=== PATIENT | male | born 1980 | race Caucasian/White ===

== ENCOUNTER 2018-10-25 14:09 | Emergency (ER) | payer OTHER ==
[~2018-10-25] VITALS: Ht 177.8 cm; Wt 90.7 kg
[~2018-10-25 14:09] MED LIST: CIPROFLOXIN HC2.5 M1 OPHTHALMIC; HYDROCODONE-APA1 TA1 PO
[2018-10-25] MEDS ORDERED: KEFLEX500 M1 PO (14:21)
[2018-10-25] MEDS ORDERED: IBUPROFEN 600600 M1 PO (14:21)
[2018-10-25 14:59] VITALS: BP 136/71
== END 2018-10-25 14:59 | disposition home or self-care (01) ==
LOC: M.ERS 14:09
DX: S61.210A Laceration without foreign body of right index finger without damage to nail, initial encounter (principal); W31.89XA Contact with other specified machinery, initial encounter; Y93.89 Activity, other specified; Y92.89 Other specified places as the place of occurrence of the external cause; Y99.8 Other external cause status